=== PATIENT | male | born 1990 | race Caucasian/White ===

== ENCOUNTER 2021-10-17 12:21 | Emergency (ER) | payer MEDICAID, OTHER ==
[~2021-10-17] VITALS: Ht 195.6 cm; Wt 143.2 kg
[2021-10-17 14:45] VITALS: BP 155/73
== END 2021-10-17 14:49 | disposition home or self-care (01) ==
LOC: EMS 12:24
DX: S50.02XA Contusion of left elbow, initial encounter (principal); F10.20 Alcohol dependence, uncomplicated; F12.90 Cannabis use, unspecified, uncomplicated; V89.2XXA Person injured in unspecified motor-vehicle accident, traffic, initial encounter; Y93.89 Activity, other specified; Y92.89 Other specified places as the place of occurrence of the external cause; Y99.8 Other external cause status
CPT/HCPCS: 99283